=== PATIENT | male | born 1940 | race Caucasian/White ===

== ENCOUNTER 2016-04-29 09:02 | Emergency (ER) | payer OTHER, MEDICARE ==
[~2016-04-29] VITALS: Ht 175.3 cm; Wt 98.2 kg
[~2016-04-29 09:02] MED LIST: ALLO300T2 PO; ASPI325T32 PO; DILT180C47 PO; GLUC500T12 PO; PYR50 PO; SIMV10TA4 PO
[2016-04-29 09:09] VITALS: BP 150/70; PULSE 70; RESP 22; O2SAT 96
[2016-04-29] MEDS ORDERED: WARF5TAB7 PO (09:10)
[2016-04-29] MEDS ORDERED: GABA-502 PO (09:10)
--- NOTE | 2016-04-29 09:10 | ED.REPORT ---
HPI-Stroke / CVA Apr 29, 2016 ED Provider: Dr. 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 He went to bed at 2300 but could not go to sleep. He had no neurologic deficits at that time. At 0300 he walked to the bathroom and noticed the L leg weakness. Yesterday he reports having a great day with no sense of weakness. Associated symptoms include pain in L hip, unsteadiness, diffuse headache described as burning, and anxiety.He denies symptoms of fever, nausea , vomiting , diarrhea or any other illness. 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 His neurologist is Dr. Rios at [facility]. His PCP is Dr. Leonardo at [facility] Nursing Notes Stated Complaint: POSSIBLE STROKE Chief Complaint: Neuro Symptoms/ Deficits Nursing Notes Reviewed: Yes Allergies: Coded Allergies: No Known Allergies (Verified Allergy, Unknown, 11/27/14) Scheduled Allopurinol (Allopurinol) 300 Mg Tablet 300 MG PO DAILY (Reported) Diltiazem ER (Dilt XR) 180 Mg Cap.er.deg 180 MG PO BID (Reported) Gabapentin (Gabapentin) 300 Mg Capsule 300 MG PO BID (Reported) Simvastatin (Simvastatin) 10 Mg Tablet 10 MG PO DAILY (Reported) Warfarin Sodium (Warfarin Sodium) 5 Mg Tablet 5 MG PO DAILY (Reported) Miscellaneous Medications Glucosamine (Glucosamine) 500 Mg Tablet 1,500 MG PO (Reported) Pyridoxine (Vitamin B-6) 50 Mg Tablet 100 MG PO (Reported) General Time Seen by Provider: 09:13 Chief Complaint Weakness (Generalized) Hx Obtained From: Patient Arrived By: Walk-in Time last known well Patient went to bed at 2300, noticed symptoms at 0300. Sudden in Onset?: Yes Symptom Duration: 5 - 8 hours Progression Since Onset: Constant Severity: Current: No pain currently Recent Healthcare: No recent doctor visit Similar Sx Previous: Yes Risk Factors )( TPA Administration/Criteria Stroke Thrombolytic Therapy : TPA Considered: Yes TPA Administered Intravenously: No, exclusion criteria (NIH score is 0. Awoke with symptoms at 0300, 6 hours previous to presentation. On Warfarin. 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 His says at baseline. ) Right Arm Motor Drift (10s): No drift 10 sec (0) Left Arm Motor Drift (10s): No drift 10 sec (0) Right Leg Motor Drift (5s): No drift 5 sec (0) Left Leg Motor Drift (5s): No drift 5 sec (0) Limb Ataxia FNF/Heel-Oconnell: No ataxia (0) Sensation (Arms/Legs/Face): No sensory loss (0) Language Aphasia: No aphasia, normal (0) Dysarthria: No dysarthria, normal (0) Extinction/Inattention: No exctinct/inattent (0) NIHSS Score: 0 Time NIHSS Performed: 09:30 Date NIHSS Performed: Apr 29, 2016 Past Medical History Past Medical History Notes: Neurologist is Dr. rios at [facility]. Phone number is [phone] Sales Service Route Manager is at [facility] PCP is Dr. leonardo at [facility] Past Medical History Small hemorrhagic stroke left thalamus November 01, 2014 GI disorders hepatits at age 12 Atrial fibrillation Past Surgical History pacemaker insertion in 2008 reattachment of tendon in ankle Family History noncontributory Smoking History Former Smoker (quit in 1966) Social History Alcohol Use: "Social" Other Social History: , Local resident Ambulatory Status Independent Review of Systems Constitutional: Denies: Chills, Fever Respiratory: Denies: Shortness of breath Cardiovascular: Denies: Chest pain GI: Denies: Diarrhea, Nausea, Vomiting Musculoskeletal: Reports: Joint pain (L hip) Neurologic: Reports: Focal weakness, Headache, Problem walking ("felt weak in L leg"), Denies: Change LOC, Numbness, Slurred speech, Vision change Psychiatric: Reports: Anxiety Complete sys rev & neg: except as marked. Physical Exam Initial Vital Signs Vital Signs (First) Date Time Temp Pulse Resp B/P Pulse Ox O2 Delivery O2 Flow Rate FiO2 04/29/16 09:09 36.5 70 22 150/70 96 Room Air Initial VS: Reviewed General/Constitutional: Awake, Alert Head / Eyes: Atraumatic, Normocephalic, PERRL, EOMI Neck: Atraumatic, Full range of motion Respiratory / Chest: Atraumatic, Breath sounds NL, Breath sounds = bilat, No rales, No rhonchi, No wheezing Cardiovascular: Heart rate NL, Regular rhythm, Heart sounds NL, No gallop, No murmurs, No rubs Neurologic: Oriented X3, Speech NL See NIH stroke scale in Risk Factors. 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 ENT: Atraumatic, Airway patent, Mucous membranes moist Abdomen: Atraumatic, Soft, Non-tender, No guarding, No rebound Upper Extremity / MS: Atraumatic, Full range of motion Lower Extremity / Pelvis / MS: Atraumatic, Full range of motion, No edema Peripheral pulses normal. Skin: Atraumatic, Color NL, No rash, Warm, Dry Interpretation & Diagnostics Lab Results Interpretation Result Diagram: 04/29/16 0930 04/29/16 0930 Test 04/29/16 09:30 04/29/16 11:05 White Blood Count 10.1th/mm3 (3.8-10.1) Red Blood Count 4.88mil/mm3 (4.40-5.80) Hemoglobin 15.5g/dL (13.8-17.2) Hematocrit 45.0% (41.0-50.0) Mean Corpuscular Volume 92.2fL (81-100) Mean Corpuscular Hemoglobin 31.8pg (27.0-35.0) Mean Corpuscular Hemoglobin Concent 34.4% (32.0-37.0) Red Cell Distribution Width 12.9% (12.3-15.4) Platelet Count 253bil/L (150-400) Neutrophils (%) (Auto) 64.1% (40-74) Lymphocytes (%) (Auto) 23.0% (14-46) Monocytes (%) (Auto) 9.6% (4-12) Eosinophils (%) (Auto) 1.9% (0-5) Basophils (%) (Auto) 0.9% (0-3) Prothrombin Time 22.5sec (8.1-12.5) Prothromb Time International Ratio 2.07ratio Sodium Level 138mEq/L (134-144) Potassium Level 4.0mEq/L (3.5-5.2) Chloride Level 101mEq/L (97-108) Carbon Dioxide Level 24mmol/L (18-29) Blood Urea Nitrogen 21mg/dL (8-27) Creatinine 1.06mg/dL (0.76-1.27) Estimat Glomerular Filtration Rate 72mL/min (>59) Glucose Level 141mg/dL (60-99) Calcium Level 8.8mg/dL (8.5-10.1) Total Bilirubin 0.5mg/dL (0.0-1.2) Aspartate Amino Transf (AST/SGOT) 27U/L (0-50) Alanine Aminotransferase (ALT/SGPT) 22U/L (0-44) Alkaline Phosphatase 85U/L (25-160) Total Protein 6.9g/dL (6.4-8.4) Albumin 4.0g/dL (3.4-5.0) Urine Color Straw (YELLOW) Urine Appearance Hazy (CLEAR,HAZY) Urine pH 6.0 (5.0-8.0) Urine Specific [place] 1.010 (1.003-1.035) Urine Protein Negativemg/dL (NEG,TRACE) Urine Glucose (UA) Negativemg/dL (NEGATIVE) Urine Ketones Negativemg/dL (NEGATIVE) Urine Occult Blood Trace (NEGATIVE) Urine Nitrite Negative (NEGATIVE) Urine Bilirubin Negative (NEGATIVE) Urine Urobilinogen Normalmg/dL (NORMAL) Urine Leukocyte Esterase Negative (NEGATIVE) Urine RBC 0-2/hpf (0-2) Urine WBC 0-5/hpf (0-5) Urine Epithelial Cells Occasional/hpf (NONE-MOD) Urine Crystals None seen (NONE SEEN) Urine Bacteria None/hpf (NONE-FEW) Urine Hyaline Casts None/lpf (NONE) Urine Granular Casts None seen (NONE SEEN) Urine Waxy Casts None seen (NONE SEEN) Urine Red Blood Cell Casts None seen (NONE SEEN) Urine White Blood Cell Casts None seen (NONE SEEN) Urine Mucus None seen (None Seen) Urine Trichomonas None seen (NONE SEEN) Urine Yeast None (NONE SEEN) Urinalysis Comment None Urine Culture Reflexed Not indicated Lab Results Interpretation: Head CTA IMPRESSION: 1. No acute process. 2. Mild bilateral internal carotid artery origin stenoses. 3. Sinus disease. Dictated by: Selvin Crabtree M.D. on 04/29/2016 at 11:15 Approved by: Selvin Crabtree M.D. on 04/29/2016 at 11:23 General Lab Results Interp 1: Labs reviewed ECG Interpretation ECG Interpretation: Afib/flut and V-paced complexes. Rate is 61. Time: 09:58 Interpreted by: ED physician CT Head Interpretation IMPRESSION: 1. No acute intracranial abnormality. 2. Chronic lacunar infarcts in the left thalamus and bilateral cerebellar hemispheres. 3. Active right maxillary sinusitis. Dictated by: Selvin Tobias M.D. on 04/29/2016 at 9:45 Approved by: Selvin Tobias M.D. on 04/29/2016 at 9:49 Study: Head CT no contrast (Brain CT) Interpretation / Wet Read by: Interpret - Radiologist Re-Eval/Medical Decision Source of Hx: Old records Re-Evaluation/Progress #1: Time of Eval: 10:28 Re-Evaluation/Progress Note: Rechecked patient, explained CT test results, and consultation with Dr. Rios. Explained plan for CTA. Patient understands and agrees with the plan. All questions addressed. Re-Evaluation/Progress #2: Time of Eval: 11:35 Re-Evaluation/Progress Note: Rechecked patient, explained test results, plan for discharge, and return to ED warnings. Patient understands and agrees with the plan. All questions addressed. Understands that he needs to return immediately for new or changing neurologic symptoms. Consultation : Consulted With: Neurology Call Returned at: 10:18 Note: Consulted Dr. Rios at [facility]. If his CTA is negative, send patient home with close follow up. Counseled Regarding: Diagnosis, Lab results, Need for follow-up, When/why to return to ED Patient Discharge & Departure Impression: Primary Impression: Transient ischemic attack Transient cerebral ischemia type: unspecified Qualified Code: G45.9 - Transient cerebral ischemic attack, unspecified Disposition: Home Discharge Condition All VS Reviewed: Yes Condition: Stable Patient Instructions: Transient Ischemic Attack (ED) Additional Instructions: No reversible cause for your symptoms is discovered today. In consultation with your neurologist we have decided that the evaluation today is sufficient to exclude the need for immediate hospitalization. Call his clinic today to arrange for close outpatient follow-up. Continue all of your regular medications. Follow up immediately for new or worsening neurologic symptoms such as weakness or tingling, numbness or vision change. Referrals: OTHER,PHYSICIAN (PCP) (Family) Scribe Attestation Portions of this note were transcribed by Rudy Suarez and Rosario Lees. I, , personally performed the history, physical exam, and medical decision-making: I reviewed and confirmed the accuracy for the information in the transcribed note. Signed by: demarco Sheehan, 04/29/16 1138. Signed by: Rosario Lees. Demarco, 04/29/2016, 1111 Ney Vasquez MD Apr 29, 2016 09:10 Rudy Suarez Apr 29, 2016 09:23 Rosario Lees Apr 29, 2016 09:59
[2016-04-29 09:49] LABS: BASOPHILS % (AUTO) 0.9 % (0-3); EOSINOPHILS % (AUTO) 1.9 % (0-5); MONOCYTES % (AUTO) 9.6 % (4-12); Mean Corpuscular Hemoglobin 31.8 pg (27.0-35.0); Mean Corpuscular Volume 92.2 fL (81-100); NEUTROPHILS % (AUTO) 64.1 % (40-74); Platelet Count 253 bil/L (150-400)
--- NOTE | 2016-04-29 09:51 | DRSVH ---
PROCEDURE: CT BRAIN WITHOUT CONTRAST ([id number]) INDICATIONS: tRANSIENT Left leg weakness TECHNIQUE: Noncontrast 4.5 mm thick angled axial sections acquired from the foramen magnum to the vertex, with c oronal reformats. COMPARISON: CT brain 09/27/2015, 03/02/2015, 12/13/2014, 11/27/2014, 11/01/2014, 02/05/2010 FINDINGS: Image quality: Excellent. CSF spaces: Basal cisterns are patent. No extra-axial fluid collections. The ventricles are symmet celestine in size and shape. Brain: No intracranial bleeds or masses. There is cerebral volume loss for age, with resultant vent ricular and sulcal prominence. There are periventricular and deep white matter chronic small vessel ischemic changes. Chronic bilateral cerebellar chronic lacunar ischemic infarcts appear unchanged. Ch ronic lacunar infarct in the left thalamus again noted. There is intracranial internal carotid arter y atherosclerosis. Skull and face: Calvarium and visualized facial bones appear intact, without suspicious lesions. Sinuses: Air-fluid level is noted in the partially visualized right maxillary sinus, otherwise sinuse s and mastoids are clear. IMPRESSION: 1. No acute intracranial abnormality. 2. Chronic lacunar infarcts in the left thalamus and bilateral cerebellar hemispheres. 3. Active right maxillary sinusitis. Dictated by: Selvin Tobias M.D. on 04/29/2016 at 9:45 Approved by: Selvin Tobias M.D. on 04/29/2016 at 9:49
[2016-04-29 10:03] LABS: INR 2.07 ratio
[2016-04-29 10:33] VITALS: BP 126/64; PULSE 62; RESP 16; O2SAT 94
[2016-04-29 11:19] LABS: APPEARANCE,URINE HAZY (CLEAR,HAZY); COLOR,URINE STRAW (YELLOW)
[2016-04-29 11:20] LABS: OCCULT BLOOD,URINE TRACE (NEGATIVE); UROBILINOGEN,URINE NORMAL (NORMAL)
--- NOTE | 2016-04-29 11:25 | DRSVH ---
PROCEDURE: CT ANGIO HEAD AND NECK (P) INDICATIONS: transient Left leg weak, prior basal olinda. hemorrh. TECHNIQUE: Pre-contrast 4.5 mm thick sections acquired from the foramen magnum to the vertex. After the adminis tration of intravenous contrast, 1 mm thick sections acquired from the aortic arch through the [place]. Post-contrast 4.5 mm thick sections then re-acquired from the foramen magnum to the vert ex. 3-dimensional rijyxpf-[id number] (MIP) and/or volume rendering reformats were acquired of the central intracranial vasculature and neck separately. For radiation dose reduction, the foll owing was used: automated exposure control, adjustment of mA and/or kV according to patient size. COMPARISON: None. FINDINGS: Image quality: Excellent. BRAIN: CSF spaces: Ventricles are normal in size and shape. Basal cisterns are patent. No extra-axial flu id collections. Brain: No midline shift. No intracranial bleeds or masses. Parada-white matter interface appears int act. Skull and face: Calvarium and facial bones appear intact, without suspicious lesions. Orbits appear normal. Sinuses: There is moderate right maxillary sinus mucosal thickening. Mild bilateral ethmoid air cell mucosal thickening is present. HEAD CT ANGIOGRAPHY: Anterior circulation: Intracranial internal carotid arteries are normal in size and flow. The flow within the paired anterior cerebral arteries is normal and symmetric. The flow within the middle cer ebral arteries is normal and symmetric. The anterior communicating artery is seen. No aneurysms are seen. Posterior circulation: Visualized portions of the vertebral arteries demonstrate normal caliber, and join to form a normal appearing basilar artery. Flow within the posterior cerebral arteries is norm al and symmetric. No aneurysms are seen. NECK CT ANGIOGRAPHY: Carotid system: The great vessels demonstrate a conventional anatomy as they arise from the aortic a rch. The origins of the common carotid arteries appear patent. The common carotid arteries demonstr ate normal caliber and courses. There is mild neural 20% origin stenosis involving the right internal carotid artery, which is otherwise patent. There is mild, roughly 30% origin stenosis involving the left internal carotid artery, which is otherwise patent. External carotid ovaries are patent. Posterior circulation: The origins of the vertebral arteries both appear widely patent. The right v ertebral artery is small in caliber. Left vertebral artery is dominant. The more superior extracrania l portions of both vertebral arteries also demonstrate normal courses and calibers. They join to for m a normal appearing basilar artery. Soft tissues: Visualized neck soft tissues demonstrate no suspicious abnormalities. Bones: No suspicious bony lesions. 20 mm diameter probable intra-articular loose body within the rig ht subcoracoid recess. Visualized cervical spine appears normally aligned. IMPRESSION: 1. No acute process. 2. Mild bilateral internal carotid artery origin stenoses. 3. Sinus disease. Dictated by: Selvin Crabtree M.D. on 04/29/2016 at 11:15 Approved by: Selvin Crabtree M.D. on 04/29/2016 at 11:23
[2016-04-29 11:53] VITALS: BP 125/64; PULSE 60; RESP 11; O2SAT 95
== END 2016-04-29 11:54 | disposition home or self-care (01) ==
LOC: SED 09:02
DX: G45.9 Transient cerebral ischemic attack, unspecified (principal); Z87.891 Personal history of nicotine dependence; Z95.0 Presence of cardiac pacemaker; Z86.73 Personal history of transient ischemic attack (TIA), and cerebral infarction without residual deficits; Z79.01 Long term (current) use of anticoagulants
CPT/HCPCS: 36415; 70450; 70496; 70498; 80053; 81000; 85025; 85610; 93005; 99284; Q9967